=== PATIENT | female | born 1995 | race Caucasian/White ===

== ENCOUNTER 2022-01-03 19:04 | Outpatient (CLI) | payer BC, SELFPAY ==
[2022-01-03 22:08] LABS: Chlamydia DNA Amplified* NOT DETECTED (No Detected); GC DNA Amplified* NOT DETECTED (No Detected)
== END 2022-01-03 19:05 | disposition home or self-care (01) ==
LOC: NFLDREF 19:04
PROVIDERS: Visit Provider Physician Assistant
DX: N92.1 Excessive and frequent menstruation with irregular cycle (principal); Z97.5 Presence of (intrauterine) contraceptive device
CPT/HCPCS: 87491; 87591

== ENCOUNTER 2022-05-24 15:11 | Outpatient (CLI) | payer BC, SELFPAY | END 2022-05-24 15:12 | disposition home or self-care (01) | PROVIDERS: Visit Provider Family Medicine | DX: Z00.00 Encounter for general adult medical examination without abnormal findings (principal); R53.83 Other fatigue; F41.9 Anxiety disorder, unspecified; F32.A Depression, unspecified; Z13.6 Encounter for screening for cardiovascular disorders | CPT/HCPCS: 80053; 80061; 84443 ==

== ENCOUNTER 2024-01-18 10:41 | Outpatient (CLI) | payer BC, SELFPAY ==
--- OUTSIDE RECORDS SUMMARY | 2024-01-18 15:11 | XMS_ITS | Clinical Summary ---
Author Organization [facility] Address [place], [place] [address] Care Team Providers Care Assisted Living Nursing Director Name Role Phone Judy Garvey MD Primary Care Provider Allergies No known active allergies Medications Medication Sig Dispensed Refills Start Date End Date Status vitamin-folic acid 1 mg ( RX) tablet/capsuleIndi cations:Vaginal delivery Take 1 tablet by mouth once daily. 100 tablet 08/06/2018 Active docusate (COLACE) 100 mg capsuleIndications :Vaginal delivery Take 1 capsule by mouth 2 times daily if needed for Constipation. 100 capsule 08/06/2018 Active Breast Pump - PurchaseIndication s:Vaginal delivery Electric breast pump for home use. Gestation age at delivery: 38 weeks. Reason for need: assist with breast feeding. Length of need: 24 months 1 Device 08/06/2018 Active levonorgestrel intrauterine device (MIRENA) 20 mcg/24 hours (5 yrs) 52 mg IUD Inject 1 Device intrauterine one time. 09/13/2018 Active acetaminophen (TYLENOL) 325 mg tabletIndications: Dermoid cyst Take 3 tablets by mouth every 6 hours if needed (mild pain). Max acetaminophen dose: 4000mg in 24 hrs. 60 tablet 10/01/2018 Active ibuprofen (ADVIL; MOTRIN) 200 mg tabletIndications: Dermoid cyst Take 3 tablets by mouth every 6 hours if needed for Pain (mild pain). 40 tablet 10/01/2018 Active oxyCODONE (ROXICODONE) 5 mg immediate release tabletIndications: Dermoid cyst Take 1-2 tablets by mouth every 4 hours if needed for Pain 20 tablet 10/01/2018 Active Active Problems Problem Noted Date Diagnosed Date 38 weeks gestation of 08/04/2018 Family History Medical History Relation Name Comments Gout Father Hyperlipidemia Father Cancer-colon Paternal Grandmother Relation Name Status Comments Father Paternal Grandmother Social History Tobacco Use Types Packs/Day Years Used Date Smoking Tobacco: Never Smokeless Tobacco: Never Alcohol Use Standard Drinks/Week Comments Never 0 (1 standard drink = 0.6 oz pur e alcohol) Sex and Gender Information Value Date Recorded Sex Assigned at Not on file Gender Identity Not on file Sexual Orientation Not on file Obstetrics History Para Term AB IAB SAB Ectopic Multiple Livin g Live Births 2 1 1 Date Outcome GA Total Labor Labor/2nd/3rd Weight Sex Type Anes PTL Starla A1 A5 Name Clin 2018 Term 38w 0d 0h 16m/0h 10m 3.26 kg (7 lb 3 oz) M VAGINA L VACU Epidur al 7 9 EDSIGRID S,BB SUMMER Complications: Intolera nce Delivery Location:[facility] Last Filed Vital Signs Vital Sign Reading Time Taken Comments Blood Pressure 109/70 10/01/2018 12:15 PM CDT Pulse 88 10/01/2018 12:15 PM CDT Temperature 37.8 C (100 F) 10/01/2018 10:27 AM CDT Respiratory Rate 16 10/01/2018 12:15 PM CDT Oxygen Saturation 94% 10/01/2018 12:15 PM CDT Inhaled Oxygen Concentration - - Weight 86.2 kg (190 lb) 10/01/2018 6:39 AM CDT Height 162.6 cm (5' 4) 10/01/2018 6:39 AM CDT Body Mass Index 32.61 10/01/2018 6:39 AM CDT Plan of Treatment Health Maintenance Due Date Last Done Comments Tdap 2004 Depression screening for age 12+ 2005 HIV for age 15-65 2008 BMI (ht and wt on same day) for age 18+ 10/07/2011 Hepatitis C screening for ag e 18-79 10/07/2011 Tetanus booster 2013 COVID-19 vaccine series ( season) 2023 01/27/2021, 06/15/2020, 05/20/2020 Influenza for age 9-49 10/21/2023 Pap test for age 21-65 08/10/2025 08/10/2022 Pneumococcal series for age 6-64 Aged Out No longer eligible b ased on patient's age to complete this topic Procedures Procedure Name Priority Date/Time Associated Diagnosis Comments BUSINESS INTEGRATION ANALYST THIN PREP PAP SCREEN IMAGED Routine 08/10/2022 10:39 AM CDT from Last 3 Months or Most Recently Relevant to Health Maintenance Results * BUSINESS INTEGRATION ANALYST THIN PREP PAP SCREEN IMAGED (08/10/2022 10:39 AM CDT) Case Report Gynecologic Cytology Report Case: [id number] Authorizing Provider: Erika Pimentel MD Collected: 08/10/2022 1039 Ordering Location: [facility] Received: 08/14/2022 1333 First Screen: Nikole Geller Specimen: BUSINESS INTEGRATION ANALYST ThinPrep Vial Screening, Cervical/Vaginal 09/13/2022 10:49 AM CDT [facility] INTERPRETATION/ RESULT NEGATIVE FOR INTRAEPITHELIAL LESION OR MALIGNANCY (NIL) (none) 09/13/2022 10:49 AM CD[facility] IMEN ADEQUACY Satisfactory for evaluation Endocervical component present 09/13/2022 10:49 AM CDT [facility] HPV REQUEST HPV not requested 2022 10:49 AM CDT [facility] Last Pap Result First Pap/Unknown 10:49 AM CDT [facility] Abnormal Pap or Bovill Bx in last 5 years No 09/13/2022 10:49 AM CDT [facility] Additional Information 09/13/2022 10:49 AM CDT [facility] Comment: Interpreted at [facility] - [address] [place] [address] [place] [address] Automated Review Successful 09/13/2022 10:49 AM CDT [facility] [employer] LAB[facility] ENTRAL LABORATORY Comment:Specimen processed s uccessfully by automated news internship device, ThinPrep Imaging System, [employer] Note The pap test is a screening technique, not a diagnostic procedure. It is used primarily to screen for squamous cancers and precursor lesions. Published studies have shown that it is subject to both false negative and false positive results. The pap test should not be used as the sole means to diagnose or exclude pre-malignant and malignant lesions. 09/13/2022 10:49 AM CDT [facility] ENTRAL LABORATORY Other (Cervical/Vagina l) 08/10/2022 10:39 AM CDT 08/14/2022 1:33 PM CDT Erika Pimentel MD PATHOLOGY/CYTOLO GY [facility]-CENTRAL LABORATORY [address] [place] [address], from Last 3 Months or Most Recently Relevant to Health Maintenance Advance Directives * Full Code (Latest Code Status on File) Date Activated Date Inactivated Comments 10/01/2018 6:23 AM 10/01/2018 2:47 PM * Full Code Date Activated Date Inactivated Comments 08/04/2018 12:09 PM 08/06/2018 12:46 PM Care Teams Assisted Living Nursing Director Relationship Specialty Start Date End Date Judy Garvey MD PCP - General Family Practice 02/08/18
== END 2024-01-18 10:42 | disposition home or self-care (01) ==
LOC: NFLDREF 15:10
PROVIDERS: PCP Family Medicine; Referring Provider Family Medicine; Visit Provider Family Medicine
DX: E66.9 Obesity, unspecified (principal); R53.83 Other fatigue; Z13.1 Encounter for screening for diabetes mellitus; Z13.6 Encounter for screening for cardiovascular disorders
CPT/HCPCS: 80053; 80061

== ENCOUNTER 2024-02-08 11:43 | Outpatient (CLI) | payer BC, SELFPAY | END 2024-02-08 11:44 | disposition home or self-care (01) | PROVIDERS: PCP Family Medicine; Visit Provider Obstetrics & Gynecology | DX: E66.811 Obesity, class 1 (principal); F41.9 Anxiety disorder, unspecified; F33.0 Major depressive disorder, recurrent, mild; Z31.69 Encounter for other general counseling and advice on procreation; Z87.898 Personal history of other specified conditions | CPT/HCPCS: 85520; 85598; 85610; 85613; 85670; 85730; 86146; 86147; 86762; 86787 ==

== ENCOUNTER 2024-04-25 13:09 | Outpatient (CLI) | payer BC, SELFPAY | END 2024-04-25 13:10 | disposition home or self-care (01) | PROVIDERS: PCP Family Medicine; Visit Provider Obstetrics & Gynecology | DX: D68.61 Antiphospholipid syndrome (principal) | CPT/HCPCS: 85520; 85598; 85610; 85613; 85670; 85730; 86146; 86147 ==

== ENCOUNTER 2024-12-12 14:09 | Outpatient (CLI) | payer BC, SELFPAY | END 2024-12-12 14:10 | disposition home or self-care (01) | PROVIDERS: PCP Family Medicine; Visit Provider Family Medicine | DX: R53.83 Other fatigue (principal) | CPT/HCPCS: 80053; 82607 ==